=== PATIENT | female | born 1995 | race Caucasian/White ===

== ENCOUNTER 2017-03-17 03:59 | Emergency (ER) | payer OTHER ==
[2017-03-17 04:56] VITALS: BP 125/78
== END 2017-03-17 04:56 | disposition home or self-care (01) ==
LOC: ED 03:59
DX: J20.9 Acute bronchitis, unspecified (principal)

== ENCOUNTER 2017-10-19 19:09 | Emergency (ER) | payer OTHER ==
[~2017-10-19] VITALS: Ht 160 cm; Wt 81.2 kg
[2017-10-19 19:14] VITALS: Ht 160 cm; Wt 81.2 kg
[2017-10-19 20:18] VITALS: BP 133/60
== END 2017-10-19 20:19 | disposition home or self-care (01) ==
LOC: ED 19:09
DX: L60.0 Ingrowing nail (principal)
CPT/HCPCS: 90715